=== PATIENT | female | born 1975 | race Caucasian/White ===

== ENCOUNTER 2018-04-13 13:45 | Emergency (ER) | payer MEDICAID ==
[~2018-04-13] VITALS: Ht 152.4 cm; Wt 65.8 kg
[~2018-04-13 13:45] MED LIST: BUS5 PO; HYDR25CA1 PO; SERT25TA PO
[2018-04-13 13:51] VITALS: BP 109/73
--- NOTE | 2018-04-13 13:56 | NUR ---
PT AMBULATED TO ER BED 07
[2018-04-13] MEDS ORDERED: NACL 0.9% 1,000 ML IV ONE (14:00)
[2018-04-13] MEDS ORDERED: KETOROLAC 30 MG/ML VIAL IVP ONE (14:00)
[2018-04-13] MEDS ORDERED: ONDANSETRON 4 MG/2 ML VIAL IVP ONE (14:00)
--- NOTE | 2018-04-13 14:09 | NUR ---
Note nupurone in EDM - 04/13/18 at 1411 by ISABELLA C/O SHAPR ABD PAIN 02/09 X 2 WEEKS. STATES WHEN SHE EATS IT MAKES IT WORSE AND CAUSES NAUSEA AND PERIODIC DIARRHEA. ABD SOFT AND NONTENDER. POINTS TO PERIUMBILICAL AREA. NO BRUISING OR DISTENTION OBERVED. PENDING MD VANG
--- NOTE | 2018-04-13 14:11 | NUR ---
C/O SHAPR ABD PAIN 6/10 X 2 WEEKS. STATES WHEN SHE EATS IT MAKES IT WORSE AND CAUSES NAUSEA AND PERIODIC DIARRHEA. ABD SOFT AND NONTENDER. POINTS TO PERIUMBILICAL AREA. NO BRUISING OR DISTENTION OBSERVED. PENDING MD VANG
[2018-04-13 14:23] LABS: BASOPHILS % (AUTO) 0.3 % (0.0-2.0); EOSINOPHILS # (AUTO) 0.1 K/uL (0-0.4); EOSINOPHILS % (AUTO) 0.7 % (0.0-4.0); HEMATOCRIT 37.1 % (36-48); HEMOGLOBIN 11.9 g/dL (12.0-16.0); LYMPHOCYTES # (AUTO) 1.5 K/uL (2.5-16.5); LYMPHOCYTES % (AUTO) 13.7 % (20.5-51.1); MEAN CORPUSCULAR HEMOGLOBIN 28 pg (27-31); MEAN CORPUSCULAR HGB CONC 32 g/dL (33-37); MEAN CORPUSCULAR VOLUME 88.7 fL (80-94); MONOCYTES # (AUTO) 0.5 K/uL (0.8-1.0); MONOCYTES % (AUTO) 4.4 % (1.7-9.3); NEUTROPHILS # (AUTO) 9.1 K/uL (1.8-7.7); NEUTROPHILS % (AUTO) 80.9 % (42.2-75.2); PLATELET COUNT (AUTO) 212 K/uL (140-450); RED BLOOD CELL COUNT(AUTO) 4.18 MIL/uL (4.20-5.40); RED CELL DISTRIBUTION WIDTH 14.3 % (11.6-13.7); WHITE BLOOD COUNT (AUTO) 11.2 K/uL (4.8-10.8)
[2018-04-13 14:43] LABS: ALBUMIN 3.6 g/dL (3.4-5.0); ANION GAP 9.8 (8-16); CREATININE 0.6 mg/dL (0.6-1.3); POTASSIUM 3.8 mmol/L (3.5-5.1); TOTAL BILIRUBIN 0.4 mg/dL (0.0-1.0)
--- NOTE | 2018-04-13 15:30 | NUR ---
PT RESTING IN NO APPEARENT DISTRESS
[2018-04-13 15:38] VITALS: BP 115/70
--- NOTE | 2018-04-13 15:38 | NUR ---
Patient discharged with v/s stable. Written and verbal after care instructions given and explained. Patient alert, oriented and verbalized understanding of instructions. Ambulatory with steady gait. All questions addressed prior to discharge. ID band removed. Patient advised to follow up with PMD. Rx of ZOFRAN, OMEPRAZOLE given. Patient educated on indication of medication including possible reaction and side effects. Opportunity to ask questions provided and answered.
== END 2018-04-13 15:38 | disposition home or self-care (01) ==
LOC: MED 13:45
DX: K58.0 Irritable bowel syndrome with diarrhea (principal); R11.10 Vomiting, unspecified; Z79.899 Other long term (current) drug therapy
CPT/HCPCS: 36415; 74022; 80053; 81002; 81025; 83690; 85025; 96374; 96375; 99285; J1885; J2405

== ENCOUNTER 2018-08-16 21:51 | Emergency (ER) | payer MEDICAID ==
[~2018-08-16] VITALS: Ht 149.9 cm; Wt 68.0 kg
[2018-08-16 21:55] VITALS: BP 121/74
[2018-08-17] MEDS ORDERED: ACETAMINOPHEN EXTRA STRENGTH 500 MG TAB PO ONE (00:05)
[2018-08-17] MEDS ORDERED: IBUPROFEN 600 MG TAB PO ONE (00:05)
[2018-08-17] MEDS ORDERED: cefTRIAXone 1,000 MG in LIDOCAINE MPF 1% - 5 mL VIAL 2.1 ML IM ONE (00:05)
[2018-08-17] MEDS ORDERED: ACETAMINOPHEN 650 MG/20.3 ML UDC ONE (00:37)
[2018-08-17 00:40] VITALS: BP 112/56
== END 2018-08-17 00:40 | disposition home or self-care (01) ==
LOC: MED 21:51
DX: N61.0 Mastitis without abscess (principal); Z79.899 Other long term (current) drug therapy; Z99.2 Dependence on renal dialysis
CPT/HCPCS: 90471; 90715; 96372; 99283; J0696; J2001; 81002; 81025

== ENCOUNTER 2019-03-29 03:14 | Emergency (ER) | payer SELFPAY ==
[~2019-03-29] VITALS: Ht 154.9 cm; Wt 86.2 kg
--- NOTE | 2019-03-29 03:14 | NUR ---
PT MELECIO MATHISS. TAKEN TO BED 4
[2019-03-29 03:15] VITALS: BP 158/96
--- NOTE | 2019-03-29 03:21 | NUR ---
Dr. Damon examining patient.
[2019-03-29] MEDS ORDERED: LORazepam 1 MG TAB PO ONE (03:25)
--- NOTE | 2019-03-29 03:26 | NUR ---
43 YO F BIBA FROM HOME. PT'S FAMILY CALLED 911 DUE TO PT EXPERIENCING ANXIETY S/SX. PER EMS, PT WAS FOUND WITH ARMS AND HANDS SPASMING AND PT STATING SHE WAS UNABLE TO MOVE. PT ARRIVES TO ER AWAKE, A/O X 4, ABLE TO AMBULATE FROM AMBULANCE GURNEY TO BED. PT STATES SHE INGESTED A "VITAMIN DRINK" AND THEN STARTED HYPERVENTILATING AT HOME. PT IS NOW C/O 6/10 CHEST PAIN AND A RAPID HEART RATE. HR IS 56 BPM. VSS. PT REPORTS BEING SEEN FOR ANXIETY S/SX BEFORE. DENIES ANY OTHER HEALTH HISTORY OR MEDICAL PROBLEMS. DENIES MEDICATIONS. SKIN PINK, WARM, DRY. BREATHING EVEN, UNLABORED. DENIES DRUG/ALCOHOL USE.
[2019-03-29 04:01] VITALS: BP 142/75
--- NOTE | 2019-03-29 04:01 | NUR ---
Patient discharged with v/s stable. Written and verbal after care instructions given and explained. Patient verbalized understanding. Ambulatory with steady gait. All questions addressed prior to discharge. Advised to follow up with PMD.
== END 2019-03-29 04:01 | disposition home or self-care (01) ==
LOC: MED 03:14
DX: F41.9 Anxiety disorder, unspecified (principal); Z79.899 Other long term (current) drug therapy
CPT/HCPCS: 93005; 99284

== ENCOUNTER 2020-04-18 17:47 | Emergency (ER) | payer MEDICAID, SELFPAY ==
[~2020-04-18] VITALS: Ht 144.8 cm; Wt 59.0 kg
[2020-04-18 18:00] VITALS: BP 111/81
--- NOTE | 2020-04-18 18:18 | NUR ---
PATIENT DENIES S/S OF COVID + BUT SHE CONTACTS HER DAUGHTER WHO HAS COUGH & COVID TESTED +X 2 WEEKS. PT STATED SHE WANTS TO CHECK COVID. MED HX: DENIES
--- NOTE | 2020-04-18 19:30 | NUR ---
COVID SWAB COLLECTED AND SENT TO LAB.
[2020-04-18 19:35] VITALS: BP 111/81
--- NOTE | 2020-04-18 19:35 | NUR ---
Patient discharged with v/s stable. Written and verbal after care instructions given and explained. Patient alert, oriented and verbalized understanding of instructions. Ambulatory with steady gait. All questions addressed prior to discharge. ID band removed. Patient advised to follow up with PMD. Rx of ACETOMINAPHEN, PROMETHAZINE given. Patient educated on indication of medication including possible reaction and side effects. Opportunity to ask questions provided and answered.
== END 2020-04-18 19:35 | disposition home or self-care (01) ==
LOC: MED 17:47
DX: B34.9 Viral infection, unspecified (principal); Z20.828 Contact with and (suspected) exposure to other viral communicable diseases; Z79.899 Other long term (current) drug therapy
CPT/HCPCS: 99283; U0003

== ENCOUNTER 2020-04-19 20:36 | Emergency (ER) | payer MEDICAID, SELFPAY ==
[~2020-04-19] VITALS: Ht 152.4 cm; Wt 79.4 kg
[2020-04-19 20:59] VITALS: BP 132/78
--- NOTE | 2020-04-19 21:05 | NUR ---
PT AMBUALTED TO BED 4 WITH SETADY GAIT.
--- NOTE | 2020-04-19 21:07 | NUR ---
PT TAKEN TO BED 8
--- NOTE | 2020-04-19 21:09 | NUR ---
PT AMBULATED TO RESTROOM WITH STEADY GAIT TO PROVIDE URINE SAMPLE
--- NOTE | 2020-04-19 21:19 | NUR ---
PT BIB SELF C/O NON-RADIAITNG INTERMITENT SHARP RUQ PAIN AT 8/10 X 3 WEEKS, PAIN IS WORSE WHEN EATING. PT AAOX4, COOPERATIVE, SPEECH CLEAR, SPEEKING IN FULL COMPLETE SENTENCES, AMBULATORY WITH STEADY GAIT. + NAUSEA, - DIARRHEA, - FEVER, - DYSURIA PMH:DENIES
[2020-04-19] MEDS ORDERED: IBUPROFEN 600 MG TAB PO ONE (21:20)
[2020-04-19] MEDS ORDERED: ALUMINUM HYD/MAG/SIMETHICONE 30 ML UDC PO ONE (21:20)
--- NOTE | 2020-04-19 21:23 | NUR ---
Ultrasound at bedside.
--- NOTE | 2020-04-19 21:29 | NUR ---
EKG PERFORMED AT BEDSIDE. SINUS RHYTHM @ 59
--- NOTE | 2020-04-19 22:16 | NUR ---
PT RESTING IN BED, DENIES PAIN AT THIS TIME, VSS, NO SIGNS OF DISTRESS NOTED
[2020-04-19 22:17] LABS: BASOPHILS % (AUTO) 0.4 % (0.0-2.0); EOSINOPHILS # (AUTO) 0.2 K/uL (0-0.4); EOSINOPHILS % (AUTO) 2.3 % (0.0-4.0); HEMATOCRIT 36.5 % (36-48); HEMOGLOBIN 12.1 g/dL (12.0-16.0); LYMPHOCYTES # (AUTO) 2.5 K/uL (2.5-16.5); LYMPHOCYTES % (AUTO) 30.6 % (20.5-51.1); MEAN CORPUSCULAR HEMOGLOBIN 30 pg (27-31); MEAN CORPUSCULAR HGB CONC 33 g/dL (33-37); MEAN CORPUSCULAR VOLUME 89.9 fL (80-94); MONOCYTES # (AUTO) 0.5 K/uL (0.8-1.0); MONOCYTES % (AUTO) 6.3 % (1.7-9.3); NEUTROPHILS % (AUTO) 60.4 % (42.2-75.2); PLATELET COUNT (AUTO) 212 K/uL (140-450); RED BLOOD CELL COUNT(AUTO) 4.06 MIL/uL (4.20-5.40); RED CELL DISTRIBUTION WIDTH 13.8 % (11.6-13.7); WHITE BLOOD COUNT (AUTO) 8.3 K/uL (4.8-10.8)
[2020-04-19 22:33] LABS: ALBUMIN 3.5 g/dL (3.4-5.0); ANION GAP 13.3 (8-16); CARBON DIOXIDE 27.4 mmol/L (21-32); CREATININE 0.7 mg/dL (0.6-1.3); POTASSIUM 3.7 mmol/L (3.5-5.1); TOTAL BILIRUBIN 0.3 mg/dL (0.0-1.0)
[2020-04-19 23:40] VITALS: BP 111/80
--- NOTE | 2020-04-19 23:40 | NUR ---
Patient discharged with v/s stable. Written and verbal after care instructions given and explained. Patient alert, oriented and verbalized understanding of instructions. Ambulatory with steady gait. All questions addressed prior to discharge. ID band removed. Patient advised to follow up with PMD. Rx of FAMOTIDINE given. Patient educated on indication of medication including possible reaction and side effects. Opportunity to ask questions provided and answered.
== END 2020-04-19 23:40 | disposition home or self-care (01) ==
LOC: MED 20:36
DX: R10.13 Epigastric pain (principal); Z98.890 Other specified postprocedural states
CPT/HCPCS: 36415; 76705; 80053; 81025; 83690; 85025; 93005; 99285; Q0092; 99284

== ENCOUNTER 2020-11-26 04:18 | Emergency (ER) | payer MEDICAID, SELFPAY ==
[~2020-11-26] VITALS: Ht 149.9 cm; Wt 71.2 kg
[2020-11-26 04:49] VITALS: BP 127/77
--- NOTE | 2020-11-26 05:10 | NUR ---
ERMD AT BEDSIDE
--- NOTE | 2020-11-26 05:27 | NUR ---
PT AMBULATED TO BED 05, STEADY GAIT
--- NOTE | 2020-11-26 05:30 | NUR ---
RECEIVED IN BED 5 WITH C/O EPIGASTIC PAIN RADIATING TO RIGHT SIDE X 10 DAYS. STATES PAIN = 06/11. ATTACHED TO CM = SR WITHOUT ECTOPY PMH : NONE NKDA
[2020-11-26] MEDS ORDERED: KETOROLAC 30 MG/ML VIAL IM ONE (05:35)
--- NOTE | 2020-11-26 05:50 | NUR ---
LABS DRAWN RIGHT HAND
[2020-11-26 06:29] LABS: BASOPHILS # (AUTO) 0.1 K/uL (0.00-0.22); BASOPHILS % (AUTO) 0.7 % (0.0-2.0); EOSINOPHILS # (AUTO) 0.2 K/uL (0-0.4); EOSINOPHILS % (AUTO) 2.3 % (0.0-4.0); HEMATOCRIT 34.1 % (36-48); HEMOGLOBIN 11.5 g/dL (12.0-16.0); LYMPHOCYTES % (AUTO) 21.3 % (20.5-51.1); MEAN CORPUSCULAR HEMOGLOBIN 30 pg (27-31); MEAN CORPUSCULAR HGB CONC 34 g/dL (33-37); MEAN CORPUSCULAR VOLUME 88.8 fL (80-94); MONOCYTES # (AUTO) 0.5 K/uL (0.8-1.0); NEUTROPHILS # (AUTO) 6.6 K/uL (1.8-7.7); NEUTROPHILS % (AUTO) 70.7 % (42.2-75.2); PLATELET COUNT (AUTO) 206 K/uL (140-450); RED BLOOD CELL COUNT(AUTO) 3.84 MIL/uL (4.20-5.40); RED CELL DISTRIBUTION WIDTH 13.6 % (11.6-13.7); WHITE BLOOD COUNT (AUTO) 9.4 K/uL (4.8-10.8)
[2020-11-26 06:30] LABS: ALBUMIN 3.5 g/dL (3.4-5.0); ANION GAP 14.8 (8-16); CARBON DIOXIDE 24.7 mmol/L (21-32); CREATININE 0.7 mg/dL (0.6-1.3); POTASSIUM 3.5 mmol/L (3.5-5.1); TOTAL BILIRUBIN 0.4 mg/dL (0.0-1.0)
[2020-11-26 06:55] VITALS: BP 127/77
== END 2020-11-26 06:55 | disposition home or self-care (01) ==
LOC: MED 04:18
DX: R07.89 Other chest pain (principal)
CPT/HCPCS: 36415; 71045; 80053; 84484; 84703; 85025; 93005; 96372; 99285; J1885

== ENCOUNTER 2020-12-20 05:30 | Emergency (ER) | payer MEDICAID, SELFPAY ==
[~2020-12-20] VITALS: Ht 149.9 cm; Wt 69.4 kg
[2020-12-20 05:36] VITALS: BP 129/67
[2020-12-20] MEDS ORDERED: ONDANSETRON 4 MG/2 ML VIAL IVP ONE (05:55)
[2020-12-20] MEDS ORDERED: KETOROLAC 15 MG/ML VIAL IVP ONE (05:55)
[2020-12-20] MEDS ORDERED: ACETAMINOPHEN 650 MG/20.3 ML UDC PO ONE (05:55)
[2020-12-20] MEDS ORDERED: NACL 0.9% 1,000 ML IV ONE (05:55)
--- NOTE | 2020-12-20 06:02 | NUR ---
45 Y/O FEMALE PATIENT PRESENTS TO ED WITH EPIGASTRIC PAIN . PT STATES 10/10 SHARP EPIGASTRIC PAIN THAT RADIATES TO THE RIGHT LOWER QUADRANT. DENIES N/V/D; SKIN IS PINK/WARM/DRY; AAOX4 WITH EVEN AND STEADY GAIT; LUNGS CLEAR BL; HR EVEN AND REGULAR; PT DENIES ANY FEVER, CP, SOB, OR COUGH AT THIS TIME; VSS; PATIENT POSITIONED FOR COMFORT; HOB ELEVATED; BEDRAILS UP X2; BED DOWN. ER MD MADE AWARE OF PT STATUS. PMH: DENIES NKA SLOVENIAN SPEAKING
[2020-12-20 06:42] LABS: BASOPHILS % (AUTO) 0.3 % (0.0-2.0); EOSINOPHILS # (AUTO) 0.3 K/uL (0-0.4); EOSINOPHILS % (AUTO) 3.2 % (0.0-4.0); HEMATOCRIT 36.4 % (36-48); LYMPHOCYTES # (AUTO) 2.2 K/uL (2.5-16.5); LYMPHOCYTES % (AUTO) 28.6 % (20.5-51.1); MEAN CORPUSCULAR HEMOGLOBIN 30 pg (27-31); MEAN CORPUSCULAR HGB CONC 33 g/dL (33-37); MEAN CORPUSCULAR VOLUME 89.4 fL (80-94); MONOCYTES # (AUTO) 0.6 K/uL (0.8-1.0); MONOCYTES % (AUTO) 7.4 % (1.7-9.3); NEUTROPHILS # (AUTO) 4.7 K/uL (1.8-7.7); NEUTROPHILS % (AUTO) 60.5 % (42.2-75.2); PLATELET COUNT (AUTO) 228 K/uL (140-450); RED BLOOD CELL COUNT(AUTO) 4.07 MIL/uL (4.20-5.40); RED CELL DISTRIBUTION WIDTH 13.9 % (11.6-13.7); WHITE BLOOD COUNT (AUTO) 7.9 K/uL (4.8-10.8)
--- NOTE | 2020-12-20 06:43 | NUR ---
ULTRASOUND AT BEDSIDE
[2020-12-20 06:55] LABS: ALBUMIN 3.8 g/dL (3.4-5.0); ANION GAP 9.9 (8-16); CREATININE 0.7 mg/dL (0.6-1.3); POTASSIUM 3.9 mmol/L (3.5-5.1); TOTAL BILIRUBIN 0.4 mg/dL (0.0-1.0)
--- NOTE | 2020-12-20 07:18 | NUR ---
GIVEN REPORT TO JAIMIE HANSON FOR CONTINUITY OF CARE
--- NOTE | 2020-12-20 07:19 | NUR ---
Received report from JAIMIE Cardenas, transfer of caqre at this time.
--- NOTE | 2020-12-20 07:22 | NUR ---
Pt resting supine in bed with HOB elevated. Pt A&O X4 calm and cooperative, VSS, will continue to monitor.
--- NOTE | 2020-12-20 08:01 | NUR ---
Dr. Mace is reevaluating the patient at bedside.
[2020-12-20] MEDS ORDERED: OMEP20TC12 PO (08:31)
[2020-12-20 08:58] VITALS: BP 129/67
--- NOTE | 2020-12-20 08:58 | NUR ---
Patient discharged with v/s stable. Written and verbal after care instructions given and explained. Patient alert, oriented and verbalized understanding of instructions. Ambulatory with steady gait. All questions addressed prior to discharge. ID band removed. Patient advised to follow up with PMD. Rx of Omeprazole 20mg PO daily given. Patient educated on indication of medication including possible reaction and side effects. Opportunity to ask questions provided and answered.
[2020-12-20 11:32] LABS: APPEARANCE,URINE CLEAR (CLEAR); BILIRUBIN,URINE NEGATIVE (NEGATIVE); BLOOD, URINE NEGATIVE (NEGATIVE); COLOR,URINE YELLOW (YELLOW); LEUKOCYTE ESTERASE ,URINE NEGATIVE (NEGATIVE); NITRITE, URINE NEGATIVE (NEGATIVE); UGLUCOSE NEGATIVE (NEGATIVE)
--- NOTE | 2020-12-21 19:23 | NUR ---
LATE ENTRY- 0.9% NS DISCONTINUED AT 0730
== END 2020-12-20 08:51 | disposition home or self-care (01) ==
LOC: MED 05:30
DX: R10.11 Right upper quadrant pain (principal); R11.2 Nausea with vomiting, unspecified; Z79.899 Other long term (current) drug therapy
CPT/HCPCS: 36415; 76705; 80053; 81003; 81025; 82150; 83690; 85025; 96361; 96374; 96375; 99284; J1885; J2405; J7030

== ENCOUNTER 2021-01-24 05:25 | Emergency (ER) | payer MEDICAID ==
[~2021-01-24] VITALS: Ht 134.6 cm; Wt 70.8 kg
[~2021-01-24 05:25] MED LIST changes: +OMEP20TC12 PO
[2021-01-24 05:32] VITALS: BP 124/78
--- NOTE | 2021-01-24 05:43 | NUR ---
PT TAKEN TO BED 6
--- NOTE | 2021-01-24 05:48 | NUR ---
45/F BIB self c/o abdominal pain 05/12 radiating to lower back since 299. Pt also verbalized nausea, vomiting x2, diarrhea, burning sensation when urinating. Denies any fever and chills. palpation of abdomen patient grimaces, groans and tenses the stomach. AAOx4. VSS. Denies PMH NKA
--- NOTE | 2021-01-24 06:06 | NUR ---
ERMD at bedside for examination of patient
[2021-01-24] MEDS ORDERED: PHENAZOPYRIDINE 100 MG TAB PO ONE (06:10)
[2021-01-24] MEDS ORDERED: KETOROLAC 30 MG/ML VIAL IM ONE (06:10)
--- NOTE | 2021-01-24 06:11 | NUR ---
urine collected and sent to lab, received by nathan cueva
[2021-01-24 06:16] LABS: APPEARANCE,URINE CLEAR (CLEAR); BILIRUBIN,URINE NEGATIVE (NEGATIVE); BLOOD, URINE TRACE-I (NEGATIVE); COLOR,URINE YELLOW (YELLOW); LEUKOCYTE ESTERASE ,URINE NEGATIVE (NEGATIVE); NITRITE, URINE NEGATIVE (NEGATIVE); UGLUCOSE NEGATIVE (NEGATIVE)
[2021-01-24 06:26] LABS: RBC,URINE 0-5 /HPF (0-5); WBC,URINE 0-5 /HPF (0-5)
--- NOTE | 2021-01-24 06:48 | NUR ---
ermd at bedside for re-examination of patient and informing patient about results
[2021-01-24] MEDS ORDERED: PYR100 PO (06:55)
[2021-01-24] MEDS ORDERED: NAPR-54 PO (06:55)
[2021-01-24] MEDS ORDERED: NITR100C7 PO (06:55)
[2021-01-24 07:00] VITALS: BP 94/56
--- NOTE | 2021-01-24 07:00 | NUR ---
Patient discharged with v/s stable. Written and verbal after care instructions given and explained. Patient alert, oriented and verbalized understanding of instructions. Ambulatory with steady gait. All questions addressed prior to discharge. ID band removed. Patient advised to follow up with PMD. Rx of naproxen, macrobid 100mg cap, and pyridium given. Patient educated on indication of medication including possible reaction and side effects. Opportunity to ask questions provided and answered.
== END 2021-01-24 07:00 | disposition home or self-care (01) ==
LOC: MED 05:25
DX: N39.0 Urinary tract infection, site not specified (principal); R35.0 Frequency of micturition; Z79.899 Other long term (current) drug therapy
CPT/HCPCS: 81001; 81025; 96372; 99283; J1885

== ENCOUNTER 2021-03-26 12:56 | Emergency (ER) | payer MEDICAID ==
[~2021-03-26] VITALS: Ht 154.9 cm; Wt 69.9 kg
[~2021-03-26 12:56] MED LIST changes: +NAPR-54 PO; +NITR100C7 PO; +OMEP-278 PO; -OMEP20TC12 PO; +PYR100 PO
[2021-03-26 14:12] VITALS: BP 111/56
[2021-03-26] MEDS ORDERED: ONDANSETRON 4 MG ODT PO ONE (15:05)
[2021-03-26] MEDS ORDERED: KETOROLAC 60 MG/2 ML VIAL IM ONE (15:05)
[2021-03-26] MEDS ORDERED: ONDA8TAB87 PO (15:23)
[2021-03-26] MEDS ORDERED: OMEP40EC24 PO (15:23)
[2021-03-26] MEDS ORDERED: ACET-8386 PO (15:23)
[2021-03-26] MEDS ORDERED: IBUP-2213 PO (15:23)
[2021-03-26 15:43] VITALS: BP 111/56
== END 2021-03-26 15:43 | disposition home or self-care (01) ==
LOC: MED 12:56
DX: R10.11 Right upper quadrant pain (principal); R11.2 Nausea with vomiting, unspecified; Z79.899 Other long term (current) drug therapy
CPT/HCPCS: 81002; 81025; 96372; 99283; J1885; Q0162

== ENCOUNTER 2022-09-27 12:44 | Emergency (ER) | payer MEDICAID ==
[~2022-09-27] VITALS: Ht 137.2 cm; Wt 72.2 kg
[~2022-09-27 12:44] MED LIST changes: +ACET-8905 PO; +IBUP-2213 PO; +OMEP40EC24 PO; +ONDA8TAB87 PO
[2022-09-27 12:50] VITALS: BP 126/74
--- NOTE | 2022-09-27 12:55 | NUR ---
PT AMB TO BED 2.
--- NOTE | 2022-09-27 13:16 | NUR ---
X RAY AT BEDSIDE.
--- NOTE | 2022-09-27 13:18 | NUR ---
47F PRESENTS TO ED WITH C/O EPIGASTRIC PAIN AND N/V X1 WEEK. PT REPORTS INTERMITTENT BURNING LIKE, 8/10 PAIN RADIATING TO UPPER BACK CAUSING N/V. PT REPORTS 2 EPISODES OF VOMITING THIS MORNING, DENIES FEVERS, CHILLS, DIARRHEA, UTI SYMPTOMS. PT REPORTS TAKING TYLENOL WITH MILD RELIEF YESTERDAY, DENIES TAKING TODAY.
[2022-09-27] MEDS ORDERED: NITR100C7 PO (14:11)
[2022-09-27] MEDS ORDERED: PROM118S5 PO (14:11)
--- NOTE | 2022-09-27 14:19 | NUR ---
Patient discharged with v/s stable. Written and verbal after care instructions ABOUT UTI AND VIRAL ILLNESS given and explained. Patient alert, oriented and verbalized understanding of instructions. Ambulatory with steady gait. All questions addressed prior to discharge. ID band removed. Patient advised to follow up with PMD. Rx of MACROBID AND PROMETHAZINE-DM given. Patient educated on indication of medication including possible reaction and side effects. Opportunity to ask questions provided and answered.
[2022-09-27 14:35] LABS: APPEARANCE,URINE CLEAR (CLEAR); BILIRUBIN,URINE NEGATIVE (NEGATIVE); BLOOD, URINE TRACE-I (NEGATIVE); COLOR,URINE YELLOW (YELLOW); LEUKOCYTE ESTERASE ,URINE NEGATIVE (NEGATIVE); NITRITE, URINE NEGATIVE (NEGATIVE); UGLUCOSE NEGATIVE (NEGATIVE)
[2022-09-27 14:58] LABS: RBC,URINE 0-5 /HPF (0-5); WBC,URINE 0-5 /HPF (0-5)
== END 2022-09-27 14:19 | disposition home or self-care (01) ==
LOC: MED 12:44
DX: B34.9 Viral infection, unspecified (principal); N39.0 Urinary tract infection, site not specified; J02.9 Acute pharyngitis, unspecified; R05.9 Cough, unspecified; R11.10 Vomiting, unspecified; R07.9 Chest pain, unspecified; M54.9 Dorsalgia, unspecified; R10.13 Epigastric pain; Z79.899 Other long term (current) drug therapy
CPT/HCPCS: 71045; 81001; 81025; 99284; Q0092; 81003

== ENCOUNTER 2024-06-21 15:23 | Emergency (ER) | payer MEDICAID, OTHER ==
[~2024-06-21] VITALS: Ht 147.3 cm; Wt 76.7 kg
[~2024-06-21 15:23] MED LIST changes: +NAPR-337 PO; -NAPR-54 PO; +PROM118S5 PO
[2024-06-21 15:33] VITALS: BP 113/80; PULSE 72; RESP 16; TEMP 97; O2SAT 98
[2024-06-21 16:05] LABS: BILIRUBIN,URINE NEGATIVE (NEGATIVE); BLOOD, URINE 3+ (NEGATIVE); COLOR,URINE YELLOW (YELLOW); LEUKOCYTE ESTERASE ,URINE 1+ (NEGATIVE); NITRITE, URINE POSITIVE (NEGATIVE); PROTEIN,URINE 2+ (NEGATIVE); UGLUCOSE NEGATIVE (NEGATIVE); UROBILINOGEN,URINE 0.2 EU/dL (0.2 - 1)
[2024-06-21 16:14] LABS: APPEARANCE,URINE SLIGHTLY HAZY (CLEAR)
[2024-06-21 16:16] LABS: BACTERIA,URINE 2+ /HPF (None Seen); MUCUS,URINE 1+ /LPF (None Seen); SQUAMOUS EPITHELIAL CELL,UR 4-10 (MOD) /LPF (0-3 (FEW))
[2024-06-21] MEDS ORDERED: PYR100 PO (16:25)
[2024-06-21] MEDS ORDERED: IBUP-2213 PO (16:25)
[2024-06-21] MEDS ORDERED: CEPH-588 PO (16:25)
== END 2024-06-21 16:32 | disposition home or self-care (01) ==
LOC: MED 15:23
DX: N39.0 Urinary tract infection, site not specified (principal); E11.9 Type 2 diabetes mellitus without complications; Z79.899 Other long term (current) drug therapy
CPT/HCPCS: 81001; 81025; 87086; 87186; 99283